=== PATIENT | female | born 1995 | race Caucasian/White ===

== ENCOUNTER 2023-08-01 04:18 | Emergency (ER) | payer MEDICAID, SELFPAY ==
[2023-08-01] VITALS (9 sets, daily range): BP systolic 110–146; BP diastolic 66–86; PULSE 78–99; RESP 16–18; TEMP 36.9; O2SAT 96–100; BMI 26.6
[2023-08-01] MEDS: sodium chloride 0.9% 1,000 ML 999 ML IV (04:36)
[2023-08-01 04:43] LABS: Basophils # 0.1 10^3/uL (0.0-0.1); Basophils % 0.6 %; Eosinophils # 0.3 10^3/uL (0.0-0.8); Hematocrit 39.2 % (36-47); Lymphocytes # 3.1 10^3/uL (0.8-4.8); Lymphocytes % 21.9 %; Mean Corpuscular HGB Conc 33.7 g/dL (30-55); Mean Corpuscular Volume 89.1 fl (85-98); Mean Platelet Volume 9.2 fL (7.4-10.4); Monocytes # 0.9 10^3/uL (0.2-0.9); Monocytes % 6.6 %; Neutrophils # 9.79 10^3/uL (1.8-7.7); Neutrophils % 68.3 %; Nucleated Red Blood Cells % 0 %; Platelet Count 234 10^3/cmm (157-399); Red Cell Distribution Width 12.4 % (12.1-15.1); White Blood Count 14.31 10^3/uL (3.29-11.43)
[2023-08-01] MEDS: ondansetron 2 mg/ML SDV 2 mL 4 MG IVP (04:56)
[2023-08-01] MEDS: morphine 4 mg/mL SDV 1 mL IVP (04:56)
[2023-08-01 05:12] LABS: Alanine Aminotransferase 137 U/L (0-33); Albumin Level 4.6 g/dL (3.5-5.2); Alkaline Phosphatase 45 U/L (35-105); Anion Gap 14.7 (5-19); Aspartate Amino Transferase 52 U/L (0-32); Blood Urea Nitrogen 21 mg/dL (6-20); Calcium 9.8 mg/dL (8.5-10.5); Carbon Dioxide 24 mmol/L (22-29); Chloride 102 mmol/L (98-107); Creatinine Clr Calc Pharmacy 122.3932; Globulin 2.1 g/dL (1.3-4.6); Glomerular Filtration Rate 117.4 mL/min (90-130); Glucose 85 mg/dL (65-115); Lipase 37 U/L (13-60); Osmolality Calculated 286 mOsm/kg (285-295); Potassium 3.7 mmol/L (3.5-5.1); Sodium 137 mmol/L (136-145); Total Bilirubin 0.2 mg/dL (0.15-1.2); Total Protein 6.7 g/dL (6.6-8.7)
--- NOTE | 2023-08-01 05:13 | ED_ITS ---
Documented by User: Parvez Hoffman Tony, 08/01/23 05:57 HPI - Female Genitourinary 2 General: Chief complaint: Vaginal Bleeding Stated complaint: has a sub .. hemotoma told to come in if worse Time Seen by Provider: 08/01/23 04:24 History of Present Illness: 28-year-old female who is 10 weeks pregn ant she believes. She started having vaginal bleeding 5 days ago. She was seen at an outside facility and diagnosed with a subchorionic hemorrhage. She had a serum quantitative test repeated 48 hours later that was 1000 points higher than her first 1, which she believes was 8000. She has had continued bleeding, but only with urinating. This morning around 2 AM, clots began to get worse, and her cramping pain was much worse. She denies any fever. No tissue loss that she knows of. Associated symptoms: Reports abdominal pain and nausea; Deny headache(s) or vaginal discharge Review of Systems 2 Const: Denies: fever(s), chills or body aches Eyes: Denies: change in vision Card: Denies: chest pain or palpitations Resp: Denies: dyspnea, productive cough, non-productive cough or wheezing GI: Reports: abdominal pain and nausea; Denies: vomiting, diarrhea or hematochezia : Reports: vaginal bleeding; Denies: flank pain, difficulty voiding or vaginal discharge Skin/Breast: Denies: rash Neuro: Denies: headache(s), weakness in extremities, dizziness or confusion Physical Exam 2 Const: GENERAL APPEARANCE: cooperative; not frail appearing HENMT: COMMON NORMALS: normocephalic, atraumatic and Normal external nose present HEAD & SCALP: normocephalic and atraumatic FACE & SINUS: normal facial exam and face symmetric NOSE: Normal external nose present Eye: COMMON NORMALS: Equal, round and reactive pupils present and EOMs intact bilaterally PUPIL: Yes Equal, round and reactive pupils present Neck/C-Spine: GENERAL: Yes trachea midline Chest: CHEST: Yes Symmetrical chest wall rise Resp: COMMON NORMALS: normal respiratory effort, No retractions, No use of accessory muscles and clear to auscultation bilaterally AUSCULTATION: clear to auscultation bilaterally Cardio: COMMON NORMALS: regular rate and regular rhythm RATE: regular rate RHYTHM: regular rhythm GI: COMMON NORMALS: Normal to inspection, nondistended, normoactive bowel sounds present PALPATION: Yes Tenderness to palpation present (GI) (suprapubic) Extremity: COMMON NORMALS: no pedal edema Neuro: COURTNEY COMA SCALE: document GCS findings Courtney coma scale eye opening: Spontaneous [place] coma scale verbal response: Orientated [place] coma scale motor response: Obey commands Courtney coma scale total score: 15 S ENSORY EXAM: Yes extremities (intact) Psych: COMMON NORMALS: speech normal SPEECH: Yes normal speech Skin: COMMON NORMALS: no rashes or lesions noted GENERAL SKIN EXAM: no rashes or lesions noted Course 2 Vital Signs: Vital signs: Vital Signs Temperature 98.5 F 08/01/23 04:21 Pulse Rate 82 08/01/23 06:04 Respiratory Rate 18 08/01/23 06:04 Blood Pressure 137/76 08/01/23 06:41 Pulse Oximetry 98 08/01/23 06:41 Oxygen Delivery Me thod Room Air 08/01/23 06:41 MDM - Female Medical Decision Making Vitals are stable on this patient. Pain is improved after morphine here. She is receiving some IV fluid. Her white blood cell count is 14. Hemoglobin is 13. CRP is 3. She is Rh+. Serum quantitative test is 5000 now. By report, she started 8000. Poor prognostic sign. Ultrasound is pending. She is checked out to the oncoming doctor at shift change. Lab Data 08/01/23 04:35 08/01/23 04:35 Laboratory Results WBC 14.31 10^3/uL (3.29-11.43) H 08/01/23 04:35 RBC 4.40 10^6/uL (3.85-5.65) 08/01/23 04:35 Hgb 13.20 g/dL (11.27-16.99) 08/01/23 04:35 Hct 39.2 % (36-47) 08/01/23 04:35 MCV 89.1 fl (85-98) 08/01/23 04:35 MCH 30.0 pg (27-33) 08/01/23 04:35 MCHC 33.7 g/dL (30-55) 08/01/23 04:35 RDW 12.4 % (12.1-15.1) 08/01/23 04:35 Plt Count 234 10^3/cmm (157-399) 08/01/23 04:35 MPV 9.2 fL (7.4-10.4) 08/01/23 04:35 Neut % (Auto) 68.3 % 08/01/23 04:35 Lymph % (Auto) 21.9 % 08/01/23 04:35 [place] % (Auto) 6.6 % 08/01/23 04:35 Eos % (Auto) 2.0 % 08/01/23 04:35 Baso % (Auto) 0.6 % 08/01/23 04:35 Neut # (Auto) 9.79 10^3/uL (1.8-7.7) H 08/01/23 04:35 Lymph # (Auto) 3.1 10^3/uL (0.8-4.8) 08/01/23 04:35 [place] # (Auto) 0.9 10^3/uL (0.2-0.9) 08/01/23 04:35 Eos # (Auto) 0.3 10^3/uL (0.0-0.8) 08/01/23 04:35 Baso # (Auto) 0.1 10^3/uL (0.0-0.1) 08/01/23 04:35 Nucleated RBC % (auto) 0 % 08/01/23 04:35 Nucleated RBCs # 0.0 /100WBC 08/01/23 04:35 Sodium 137 mmol/L (136-145) 08/01/23 04:35 Potassium 3.7 mmol/L (3.5-5.1) 08/01/23 04:35 Chloride 102 mmol/L (98-107) 08/01/23 04:35 Carbon Dioxide 24 mmol/L (22-29) 08/01/23 04:35 Anion Gap 14.7 (5-19) 08/01/23 04:35 BUN 21 mg/dL (6-20) H 08/01/23 04:35 Creatinine 0.6 mg/dL (0.5-0.9) 08/01/23 04:35 GFR Calculation 117.4 mL/min (90-130) 08/01/23 04:35 Glucose 85 mg/dL (65-115) 08/01/23 04:35 Calculated Osmolality 286 mOsm/kg (285-295) 08/01/23 04:35 Calcium 9.8 mg/dL (8.5-10.5) 08/01/23 04:35 Total Bilirubin 0.2 mg/dL (0.15-1.2) 08/01/23 04:35 AST 52 U/L (0-32) H 08/01/23 04:35 ALT 137 U/L (0-33) H 08/01/23 04:35 Alkaline Phosphatase 45 U/L (35-105) 08/01/23 04:35 C-Reactive Protein 3.0 mg/L (0.0-4.9) 08/01/23 04:35 Total Protein 6.7 g/dL (6.6-8.7) 08/01/23 04:35 Albumin 4.6 g/dL (3.5-5.2) 08/01/23 04:35 Globulin 2.1 g/dL (1.3-4.6) 08/01/23 04:35 Lipase 37 U/L (13-60) 08/01/23 04:35 Ser , Semi-Qnt 5019.00 mIU/mL 08/01/23 04:35 Urine Color Dark yellow (Yellow) 08/01/23 05:07 Urine Appearance Cloudy (CLEAR) A 08/01/23 05:07 Urine pH 7 (5-7) 08/01/23 05:07 Ur Specific [place] 1.010 (1.005-1.030) 08/01/23 05:07 Urine Protein Neg (Negative) 08/01/23 05:07 Urine Glucose (UA) Norm (Normal) 08/01/23 05:07 Urine Ketones Negative (Negative) 08/01/23 05:07 Urine Blood 3+ (Negative) H 08/01/23 05:07 Urine Nitrate Negative (Negative) 08/01/23 05:07 Urine Bilirubin Neg (Negative) 08/01/23 05:07 Urine Urobilinogen Neg mg/dL (Negative) 08/01/23 05:07 Ur Leukocyte Esterase Negative (Negative) 08/01/23 05:07 Urine RBC 15-25 /hpf (0-2) H 08/01/23 05:07 Urine WBC 0-4 /hpf (0-5) H 08/01/23 05:07 Ur Squamous Epith Cells 0-4 /hpf (0-5) H 08/01/23 05:07 Amorphous Sediment 2+ /hpf 08/01/23 05:07 Urine Bacteria 1+ /hpf (NONE) H 08/01/23 05:07 Urine Mucus 1+ /hpf 08/01/23 05:07 Urine Opiates Screen Positive ng/mL (Negative) H 08/01/23 05:07 Ur Barbiturates Screen Negative ng/mL (Negative) 08/01/23 05:07 Ur Phencyclidine Scrn Negative ng/mL (Negative) 08/01/23 05:07 Ur Amphetamines Screen Negative ng/mL (Negative) 08/01/23 05:07 U Benzodiazepines Scrn Negative ng/mL (Negative) 08/01/23 05:07 Urine Cocaine Screen Negative ng/mL (Negative) 08/01/23 05:07 U Marijuana (THC) Screen Negative ng/mL (Negative) 08/01/23 05:07 Blood Type O Positive 08/01/23 04:42 Rho(D) Type Rh positive 08/01/23 04:42 XR interpretation done by ED provider, pending radiology final review Discharge Plan Discharge Patient Disposition: Home Clinical Impression: Spontaneous , Urinary tract infection Condition: Stable Prescriptions: New hydrocodone-acetaminophen 5-325 mg tablet 1 tab PO Q6H PRN (Reason: pain) Qty: 20 0RF Miralax 17 gram/dose powder 17 g PO DAILY Qty: 510 0RF Rx Instructions: Take 1 scoop daily while taking pain medications. cefdinir 300 mg capsule 300 mg PO BID 5 Days Qty: 10 0RF Discharge Orders: Discharge ED (Routine); Ordered 08/01/23 Ordered By: Heidi Royal Referrals: Georgia Stokes [Primary Care Provider] - (Please call your OB doctor today and see if follow-up can be obtained sooner than . Do not miss your appointment if not. If you develop fever or uncontrolled bleeding return to the emergency room. You have been screened and evaluated and felt safe for discharge. Health conditions do change or evolve sometimes and as such it is important that you follow up with your Primary Doctor to be re checked, 3- 5 days is a general good time frame for follow up. You are always welcome to return to the ED for re assessment if your symptoms are worsening or you have new concerns) Discharge Diet: Usual diet Discharge Activity: Resume usual activity Patient Instructions: Miscarriage (ED), Opioid Safety, Pain Management Activity Restrictions/Additional Instructions: Please call your OB doctor today and see if follow-up can be obtained sooner than . Do not miss your appointment if not. If you develop fever or uncontrolled bleeding return to the emergency room. You have been screened and evaluated and felt safe for discharge. Health conditions do change or evolve sometimes and as such it is important that you follow up with your Primary Doctor to be re checked, 3-5 days is a general good time frame for follow up. You are always welcome to return to the ED for re assessment if your symptoms are worsening or you have new concerns Coding Level of Care Code ED [employer] Studies Professor for Chg Fwd Documented by User: Heidi Royal MD 08/01/23 07:00 HPI - Female Genitourinary 2 General: Chief complaint: Vaginal Bleeding Stated complaint: has a sub .. hemotoma told to come in if worse Time Seen by Provider: 08/01/23 04:24 Physical Exam 2 Neuro: COURTNEY COMA SCALE: document GCS findings [place] coma scale total score: 15 Course 2 Vital Signs: Vital signs: Vital Signs Temperature 98.5 F 08/01/23 04:21 Pulse Rate 82 08/01/23 06:04 Respiratory Rate 18 08/01/23 06:04 Blood Pressure 137/76 08/01/23 06:41 Pulse Oximetry 98 08/01/23 06:41 Oxygen Delivery Me thod Room Air 08/01/23 06:41 MDM - Female Medical Decision Making Vitals are stable on this patient. Pain is improved after morphine here. She is receiving some IV fluid. Her white blood cell count is 14. Hemoglobin is 13. CRP is 3. She is Rh+. Serum quantitative test is 5000 now. By report, she started 8000. Poor prognostic sign. Ultrasound is pending. She is checked out to the oncoming doctor at shift change. Lab Review: Laboratory results were reviewed and interpreted by myself the emergency room physician. I reviewed lab work as above. Ultrasound shows decreased size of products in the uterus. This is consistent with a miscarriage. Along with the decrease in beta-hCG. Reexamination: I discussed these results with the patient. Her pain is somewhat improved but she still is having some cramping. 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 I discussed she should call and see if she can get follow-up sooner. Also discussed that she has a fever or uncontrolled bleeding to return to the emergency room Lab Data 08/01/23 04:35 08/01/23 04:35 Laboratory Results WBC 14.31 10^3/uL (3.29-11.43) H 08/01/23 04:35 RBC 4.40 10^6/uL (3.85-5.65) 08/01/23 04:35 Hgb 13.20 g/dL (11.27-16.99) 08/01/23 04:35 Hct 39.2 % (36-47) 08/01/23 04:35 MCV 89.1 fl (85-98) 08/01/23 04:35 MCH 30.0 pg (27-33) 08/01/23 04:35 MCHC 33.7 g/dL (30-55) 08/01/23 04:35 RDW 12.4 % (12.1-15.1) 08/01/23 04:35 Plt Count 234 10^3/cmm (157-399) 08/01/23 04:35 MPV 9.2 fL (7.4-10.4) 08/01/23 04:35 Neut % (Auto) 68.3 % 08/01/23 04:35 Lymph % (Auto) 21.9 % 08/01/23 04:35 [place] % (Auto) 6.6 % 08/01/23 04:35 Eos % (Auto) 2.0 % 08/01/23 04:35 Baso % (Auto) 0.6 % 08/01/23 04:35 Neut # (Auto) 9.79 10^3/uL (1.8-7.7) H 08/01/23 04:35 Lymph # (Auto) 3.1 10^3/uL (0.8-4.8) 08/01/23 04:35 [place] # (Auto) 0.9 10^3/uL (0.2-0.9) 08/01/23 04:35 Eos # (Auto) 0.3 10^3/uL (0.0-0.8) 08/01/23 04:35 Baso # (Auto) 0.1 10^3/uL (0.0-0.1) 08/01/23 04:35 Nucleated RBC % (auto) 0 % 08/01/23 04:35 Nucleated RBCs # 0.0 /100WBC 08/01/23 04:35 Sodium 137 mmol/L (136-145) 08/01/23 04:35 Potassium 3.7 mmol/L (3.5-5.1) 08/01/23 04:35 Chloride 102 mmol/L (98-107) 08/01/23 04:35 Carbon Dioxide 24 mmol/L (22-29) 08/01/23 04:35 Anion Gap 14.7 (5-19) 08/01/23 04:35 BUN 21 mg/dL (6-20) H 08/01/23 04:35 Creatinine 0.6 mg/dL (0.5-0.9) 08/01/23 04:35 GFR Calculation 117.4 mL/min (90-130) 08/01/23 04:35 Glucose 85 mg/dL (65-115) 08/01/23 04:35 Calculated Osmolality 286 mOsm/kg (285-295) 08/01/23 04:35 Calcium 9.8 mg/dL (8.5-10.5) 08/01/23 04:35 Total Bilirubin 0.2 mg/dL (0.15-1.2) 08/01/23 04:35 AST 52 U/L (0-32) H 08/01/23 04:35 ALT 137 U/L (0-33) H 08/01/23 04:35 Alkaline Phosphatase 45 U/L (35-105) 08/01/23 04:35 C-Reactive Protein 3.0 mg/L (0.0-4.9) 08/01/23 04:35 Total Protein 6.7 g/dL (6.6-8.7) 08/01/23 04:35 Albumin 4.6 g/dL (3.5-5.2) 08/01/23 04:35 Globulin 2.1 g/dL (1.3-4.6) 08/01/23 04:35 Lipase 37 U/L (13-60) 08/01/23 04:35 Ser , Semi-Qnt 5019.00 mIU/mL 08/01/23 04:35 Urine Color Dark yellow (Yellow) 08/01/23 05:07 Urine Appearance Cloudy (CLEAR) A 08/01/23 05:07 Urine pH 7 (5-7) 08/01/23 05:07 Ur Specific [place] 1.010 (1.005-1.030) 08/01/23 05:07 Urine Protein Neg (Negative) 08/01/23 05:07 Urine Glucose (UA) Norm (Normal) 08/01/23 05:07 Urine Ketones Negative (Negative) 08/01/23 05:07 Urine Blood 3+ (Negative) H 08/01/23 05:07 Urine Nitrate Negative (Negative) 08/01/23 05:07 Urine Bilirubin Neg (Negative) 08/01/23 05:07 Urine Urobilinogen Neg mg/dL (Negative) 08/01/23 05:07 Ur Leukocyte Esterase Negative (Negative) 08/01/23 05:07 Urine RBC 15-25 /hpf (0-2) H 08/01/23 05:07 Urine WBC 0-4 /hpf (0-5) H 08/01/23 05:07 Ur Squamous Epith Cells 0-4 /hpf (0-5) H 08/01/23 05:07 Amorphous Sediment 2+ /hpf 08/01/23 05:07 Urine Bacteria 1+ /hpf (NONE) H 08/01/23 05:07 Urine Mucus 1+ /hpf 08/01/23 05:07 Urine Opiates Screen Positive ng/mL (Negative) H 08/01/23 05:07 Ur Barbiturates Screen Negative ng/mL (Negative) 08/01/23 05:07 Ur Phencyclidine Scrn Negative ng/mL (Negative) 08/01/23 05:07 Ur Amphetamines Screen Negative ng/mL (Negative) 08/01/23 05:07 U Benzodiazepines Scrn Negative ng/mL (Negative) 08/01/23 05:07 Urine Cocaine Screen Negative ng/mL (Negative) 08/01/23 05:07 U Marijuana (THC) Screen Negative ng/mL (Negative) 08/01/23 05:07 Blood Type O Positive 08/01/23 04:42 Rho(D) Type Rh positive 08/01/23 04:42 Other Data Assessment and plan: -Patient has received morphine. - She has some whites and bacteria in her urine so dose of Rocephin being given. - Patient is Rh+ so RhoGAM not given. - Discharged home - Discussed findings and plan with patient. Answered any questions. - All laboratory values were reviewed and interpreted personally by myself, the ER physician - All imaging was reviewed and interpreted personally by myself, the ER physician. - Evaluation and treatment of this problem were appropriate in the emergency setting Discharge Plan Discharge Patient Disposition: Home Clinical Impression: Spontaneous , Urinary tract infection Condition: Stable Prescriptions: New hydrocodone-acetaminophen 5-325 mg tablet 1 tab PO Q6H PRN (Reason: pain) Qty: 20 0RF Miralax 17 gram/dose powder 17 g PO DAILY Qty: 510 0RF Rx Instructions: Take 1 scoop daily while taking pain medications. cefdinir 300 mg capsule 300 mg PO BID 5 Days Qty: 10 0RF Discharge Orders: Discharge ED (Routine); Ordered 08/01/23 Ordered By: Heidi Royal Referrals: Georgia Stokes [Primary Care Provider] - (Please call your OB doctor today and see if follow-up can be obtained sooner than . Do not miss your appointment if not. If you develop fever or uncontrolled bleeding return to the emergency room. You have been screened and evaluated and felt safe for discharge. Health conditions do change or evolve sometimes and as such it is important that you follow up with your Primary Doctor to be re checked, 3- 5 days is a general good time frame for follow up. You are always welcome to return to the ED for re assessment if your symptoms are worsening or you have new concerns) Discharge Diet: Usual diet Discharge Activity: Resume usual activity Patient Instructions: Miscarriage (ED), Opioid Safety, Pain Management Activity Restrictions/Additional Instructions: Please call your OB doctor today and see if follow-up can be obtained sooner than . Do not miss your appointment if not. If you develop fever or uncontrolled bleeding return to the emergency room. You have been screened and evaluated and felt safe for discharge. Health conditions do change or evolve sometimes and as such it is important that you follow up with your Primary Doctor to be re checked, 3-5 days is a general good time frame for follow up. You are always welcome to return to the ED for re assessment if your symptoms are worsening or you have new concerns Coding Level of Care Code ED [employer] Studies Professor for Darryl Mina
--- NOTE | 2023-08-01 05:14 | USR_ITS ---
PROCEDURE INFORMATION: Exam: US First Trimester, Transabdominal and US , Transvaginal Exam date and time: 08/01/2023 5:51 AM Age: 28 years old Clinical indication: Lmp or gestational age (in weeks): 9 week; Antepartum complications; Bleeding; ; Additional info: Vaginal bleeding 10w LABS AND CLINICAL REPORTS: Last menstrual period start date: 05/22/2023 Gestational age (Established): 10 w 1 d Estimated due date (Established): 02/26/2024 TECHNIQUE: Imaging protocol: Real-time transabdominal obstetrical ultrasound of the maternal pelvis and a first trimester , less than 14 weeks 0 days, with image documentation. Transvaginal imaging was used for better evaluation of the fetus, adnexa, and/or cervix. COMPARISON: No relevant prior studies available. FINDINGS: Reportedly, a prior ultrasound last week showed a 9 week intrauterine gestational sac. Images from that exam are not available for comparison. Currently, there is an intrauterine gestational sac that contains a yolk sac. The gestational sac measures 20 x 11 x 18 mm. Mean gestational sac diameter of 16.5 mm would estimate gestational age of approximately 6 to 6-1/2 weeks. No definite pole or heart activity identified at this time. These findings are usually identified around 5 1/2 to 6 weeks gestation. Therefore, this likely represents a blighted ovum/anembryonic gestation. However, non-viability or blighted ovum/anembryonic gestation cannot be definitively diagnosed on a single exam unless the mean gestational sac diameter is 25 mm or greater, without a pole. Eventual comparison with any available prior exams may be helpful. If there is further question of viability, follow up exam in several days could be helpful. No visible/significant free pelvic fluid. Maternal ovaries/adnexa appear essentially unremarkable. Blood flow detected in each ovary. The urinary bladder was not completely evaluated/imaged at this time. Endovaginal scanning provided better visualization/evaluation of the gestational sac and contents, as discussed above. US/US OB <=14 wk fetus w transvag IMPRESSION: 1. Intrauterine gestational sac containing a yolk sac, no definite pole identified at this time. See details above. 2. Eventual comparison with any available prior exams may be helpful. 3. Follow up may be helpful depending on clinical indications. 4. Unremarkable ovaries. 5. Other details discussed above.
[2023-08-01 05:25] LABS: Add Urine Culture? Yes; Add Urine Microscopic? YES; Amorphous Sediment Urine 2+ /hpf; Bacteria Urine 1+ /hpf; Bilirubin Urine Neg (Negative); Blood Urine 3+ (Negative); Glucose Urine UA Norm (Normal); Ketones Urine Negative (Negative); Leukocyte Esterase Urine Negative (Negative); Mucus Urine 1+ /hpf; Nitrate Urine Negative (Negative); Protein Urine Neg (Negative); RBC Urine 15-25 /hpf (0-2); Squamous Epithelial Cell Urine 0-4 /hpf (0-5); Urine Appearance Cloudy (CLEAR); Urine Color Dark Yellow (Yellow); Urobilinogen Urine Neg (Negative); WBC Urine 0-4 /hpf (0-5); pH Urine 7 (5-7)
[2023-08-01 05:27] LABS: Amphetamines Screen Urine Negative (Negative); Barbiturates Screen Urine Negative (Negative); Benzodiazepines Screen Urine Negative (Negative); Cocaine Screen Urine Negative (Negative); Opiate Screen Urine Positive (Negative); PCP Screen Urine Negative (Negative); THC Screen Urine Negative (Negative)
[2023-08-01] MEDS: sodium chloride 0.9% 500 ML 999 ML IV (07:07)
[2023-08-01] MEDS: cefTRIAXone 1,000 MG in sodium chloride 0.9% (plus) 50 ML 100 MG IV (07:07)
== END 2023-08-01 07:55 | disposition home or self-care (01) ==
PROVIDERS: Emergency Medicine; Emergency Provider Emergency Medicine; PCP Internal Medicine
DX: O03.9 Complete or unspecified spontaneous abortion without complication (principal); O23.41 Unspecified infection of urinary tract in pregnancy, first trimester; N39.0 Urinary tract infection, site not specified; Z3A.10 10 weeks gestation of pregnancy
CPT/HCPCS: 76801; 76817; 80053; 80306; 81001; 83690; 84702; 85025; 86140; 86900; 87086; 96361; 96365; 96375; 99284; J0696; J2270; J2405; J7030; J7040